=== PATIENT | male | born 1955 | race Caucasian/White ===

== ENCOUNTER 2017-02-04 19:21 | Observation (INO) | payer BC ==
[~2017-02-04] VITALS: Ht 180.3 cm; Wt 84.6 kg
[~2017-02-04 19:21] MED LIST: APIX1TAB3 PO; ASPI325T39 PO; SUMA100T16 PO
[2017-02-04] MEDS ORDERED: SODIUM CHLORIDE 0.9% 1000ML 1,000 ML IV STA (19:35)
[2017-02-04] MEDS ORDERED: LISI-461 PO (19:36)
[2017-02-04] MEDS ORDERED: SOTA80TA PO (19:36)
--- NOTE | 2017-02-04 19:43 | EMERGENCY ROOM VISIT NOTE ---
History Report prepared by Scribe: Dorothy Rodriguez Under the Supervision of: Dr. Erasto Mao M.D. First contact with patient: 19:30 Chief Complaint: CONGESTION Stated Complaint: CONGESTION, COUGHING UP BLOOD History of Present Illness The patient is a 61 year old male who presents to the Emergency Room with complaints of a persistent cough and congestion for the past 1 week. He is accompanied by his . Earlier this afternoon, he started experiencing hemoptysis, so he came to the ED. He reports each episode of hemoptysis is "approximately a shot glass size amount of blood". He thinks he has coughed up 4 or 5 ounces of blood so far today. The patient has a history of atrial fibrillation but states he only takes a daily baby Aspirin and no other daily blood thinners. He admits to some lightheadedness and fatigue, but states this is only after he coughs. He has never experienced hemoptysis before. He has not experienced any difficulty swallowing. 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 He did not wear a mask while working last week. He is a current 1/2 pack a day smoker. He has no history of asthma or COPD. He denies any recent hematuria or hematochezia. He admits to a feeling of discomfort in his chest, but states it does not feel like actual "pain". The patient denies any recent fevers, chills, back pain or abdominal pain. He has not undergone any recent surgeries and has had no recent travel. 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 A total of ten systems were reviewed and were otherwise negative. Past Medical & Surgical Medical Problems: (1) A-fib (2) Hemoptysis (3) HTN (hypertension) Family History FH: heart disease Social History Smoking Status: Current Every Day Smoker Drug Use: none Marital Status: Housing Status: lives with family Occupation Status: employed Current/Historical Medications Scheduled Aspirin (Aspirin Ec), 81 MG PO DAILY Lisinopril (Zestril), 10 MG PO QAM Sotalol Hcl (Sotalol Hcl), 80 MG PO BID Scheduled PRN Sumatriptan Succinate (Imitrex), 100 MG PO UD PRN for Cluster Headaches Allergies Coded Allergies: Penicillins (Unverified Allergy, Mild, anaphylaxsis, 02/04/17) Physical Exam Vital Signs Date Time Temp Pulse Resp B/P (MAP) Pulse Ox O2 Delivery O2 Flow Rate FiO2 02/04/17 23:12 59 20 144/82 02/04/17 20:56 60 22 02/04/17 20:51 59 20 02/04/17 20:46 57 16 02/04/17 20:41 62 19 02/04/17 20:36 63 14 02/04/17 20:31 62 22 02/04/17 20:26 62 11 02/04/17 20:21 66 15 02/04/17 20:18 63 02/04/17 20:02 96 Room Air 02/04/17 20:02 98 Room Air 02/04/17 19:26 36.6 66 20 162/83 97 Room Air Physical Exam GENERAL: Awake, alert, well-appearing, in no distress HENT: Normocephalic, atraumatic. Oropharynx unremarkable. Dry mucous membranes. EYES: Normal conjunctiva. Sclera non-icteric. NECK: Supple. No nuchal rigidity. FROM. No JVD. RESPIRATORY: Clear to auscultation. CARDIAC: Regular rate, normal rhythm. Extremities warm and well perfused. Pulses equal. ABDOMEN: Soft, non-distended. No tenderness to palpation. No rebound or guarding. No masses. RECTAL: Deferred. MUSCULOSKELETAL: Chest examination reveals no tenderness. The back is symmetrical on inspection without obvious abnormality. There is no CVA tenderness to palpation. No joint edema. LOWER EXTREMITIES: Calves are equal size bilaterally and non-tender. No edema. No discoloration. NEURO: Normal sensorium. No sensory or motor deficits noted. SKIN: No rash or jaundice noted. Medical Decision & Procedures ER Provider Diagnostic Interpretation: Radiology results as stated below per my review and radiologist interpretation: CHEST ONE VIEW PORTABLE HISTORY: 61 years-old Male CHEST PAIN acute atypical chest pain with cough and congestion. Initial exam. COMPARISON: Portable chest radiograph 12/04/2015 TECHNIQUE: Portable upright AP view of the chest FINDINGS: Cardiomediastinal and hilar silhouettes are within normal limits. There is no pneumothorax, pleural effusion, focal airspace consolidation or overt pulmonary edema. The bones are grossly intact. IMPRESSION: No acute cardiopulmonary process. The above report was generated using voice recognition software. It may contain grammatical, syntax or spelling errors. Electronically signed by: Kiel Patiño M.D. 02/04/2017 8:16 PM (CHEST FOR PE) ANGIO WITH CT DOSE: 349.21 mGy.cm HISTORY: 61 years-old Male presents with acute chest pain with concern for pulmonary embolus. Acute cough and congestion. Initial exam. TECHNIQUE: Multiple CTA images of the chest were obtained after the intravenous administration of 92 ml Optiray 320. Coronal and sagittal MIPS were obtained from the axial data set and were submitted for review. A dose lowering technique was utilized adhering to the principles of ALARA. COMPARISON: Chest radiograph of same day. FINDINGS: CTA: Heart is normal in size without pericardial effusion. The thoracic aorta is not well opacified, however demonstrates no dissection or aneurysm. Note is made of a bovine aortic arch. Mild atherosclerotic plaquing of the thoracic aorta is present. The pulmonary arterial tree is well opacified to the level of the subsegmental branches and demonstrates no focal filling defect to suggest pulmonary thromboembolic disease. CT CHEST: No dominant thyroid nodule. Nonspecific mildly prominent subcarinal and right hilar lymph nodes are seen measuring up to 10 mm in short axis. Moderate bilateral bronchial wall thickening is present, greatest within the lung bases compatible with bronchitis. There is no pneumothorax, pleural effusion or focal airspace consolidation. There are scattered groundglass opacities of the upper lung segments with multiple bilateral multilobar distribution nodular opacities measuring up to 4 mm suggesting infectious or inflammatory etiology. There is also suggestion of groundglass central lobular nodules within the upper lung zones. There is minimal dependent bibasilar atelectasis. Minimal layering debris is seen within the trachea. Imaged upper abdominal structures are within normal limits. Probable cyst of the superior pole right kidney is seen, 1.8 cm. Bones are intact. IMPRESSION: 1. No evidence of acute aortic pathology or pulmonary thromboembolic disease. 2. Moderate bronchitis with upper lobe predominant distribution of centrilobular groundglass opacities and scattered random distribution of bilateral multilobar distribution pulmonary nodules measuring up to 4 mm. Constellation of findings suggests associated infectious or inflammatory pneumonitis. Follow-up imaging to document resolution is needed. 3. No lobar airspace consolidation. Please refer to below summary of Fleischner criteria recommendations for follow-up of incidental CT nodules (Libby Tompkins, Guidelines for management of small pulmonary nodules detected on CT scans: A statement from the Fleischner Society, Radiology 237: [id number].) SOLID NODULES Multiple nodules size: <6 mm * Low risk patients: no routine follow-up * high risk patients: optional CT at 12 months Note: newly detected indeterminate nodule in persons 35 years of age or older. * Low risk patients: minimal or absent history of smoking and/or other known risk factors * high risk patients: history of smoking or of other known risk factors (e.g. first degree relative with lung cancer, or exposure to asbestos, radon, uranium) * if a nodule up to 8 mm is partly solid or is ground glass further follow-up is required after 24 months to exclude possible slow growing adenocarcinoma (HARMEET) The above report was generated using voice recognition software. It may contain grammatical, syntax or spelling errors. Electronically signed by: Kiel Patiño M.D. 02/04/2017 10:11 PM Laboratory Results 02/04/17 20:01 Red Blood Count 5.15, Mean Corpuscular Volume 89.9, Mean Corpuscular Hemoglobin 32.4, Mean Corpuscular Hemoglobin Concent 36.1, Mean Platelet Volume 10.6, Neutrophils (%) (Auto) 39.7, Lymphocytes (%) (Auto) 41.7, Monocytes (%) (Auto) 8.0, Eosinophils (%) (Auto) 9.9, Basophils (%) (Auto) 0.5, Neutrophils # (Auto) 3.62, Lymphocytes # (Auto) 3.82, Monocytes # (Auto) 0.73, Eosinophils # (Auto) 0.91, Basophils # (Auto) 0.05 02/04/17 20:01 Test 02/04/17 20:01 White Blood Count 9.15 K/uL (4.8-10.8) Red Blood Count 5.15 M/uL (4.7-6.1) Hemoglobin 16.7 g/dL (14.0-18.0) Hematocrit 46.3 % (42-52) Mean Corpuscular Volume 89.9 fL (80-100) Mean Corpuscular Hemoglobin 32.4 pg (25-34) Mean Corpuscular Hemoglobin Concent 36.1 g/dl (32-36) Platelet Count 264 K/uL (130-400) Mean Platelet Volume 10.6 fL (7.4-10.4) Neutrophils (%) (Auto) 39.7 % Lymphocytes (%) (Auto) 41.7 % Monocytes (%) (Auto) 8.0 % Eosinophils (%) (Auto) 9.9 % Basophils (%) (Auto) 0.5 % Neutrophils # (Auto) 3.62 K/uL (1.4-6.5) Lymphocytes # (Auto) 3.82 K/uL (1.2-3.4) Monocytes # (Auto) 0.73 K/uL (0.11-0.59) Eosinophils # (Auto) 0.91 K/uL (0-0.5) Basophils # (Auto) 0.05 K/uL (0-0.2) RDW Standard Deviation 45.1 fL (36.4-46.3) RDW Coefficient of Variation 13.7 % (11.5-14.5) Immature Granulocyte % (Auto) 0.2 % Immature Granulocyte # (Auto) 0.02 K/uL (0.00-0.02) Prothrombin Time 10.6 SECONDS (9.0-12.0) Prothromb Time International Ratio 1.0 (0.9-1.1) Anion Gap 5.0 mmol/L (3-11) Est Creatinine Clear Calc Drug Dose 74.5 ml/min Estimated GFR () 97.4 Estimated GFR (Non- 84.1 BUN/Creatinine Ratio 16.9 (10-20) Calcium Level 9.6 mg/dl (8.5-10.1) Magnesium Level 2.1 mg/dl (1.8-2.4) Total Bilirubin 0.3 mg/dl (0.2-1) Direct Bilirubin < 0.1 mg/dl (0-0.2) Aspartate Amino Transf (AST/SGOT) 25 U/L (15-37) Alanine Aminotransferase (ALT/SGPT) 27 U/L (12-78) Alkaline Phosphatase 75 U/L (45-117) Troponin I < 0.015 ng/ml (0-0.045) Total Protein 7.4 gm/dl (6.4-8.2) Albumin 4.0 gm/dl (3.4-5.0) Thyroid Stimulating Hormone (TSH) 1.780 uIu/ml (0.300-4.500) Laboratory results reviewed by me Medications Administered Medications (Trade) Dose Ordered Sig/[place] Route Start Time Stop Time Status Last Admin Dose Admin Sodium Chloride 1,000 ml @ 999 mls/hr Q1H1M STAT IV 02/04/17 19:35 02/04/17 20:35 DC 02/04/17 20:16 999 MLS/HR Sodium Chloride ([place] Nasal [place]) 2 sprays NOW ONCE NA 02/04/17 23:30 02/04/17 23:31 DC 02/05/17 00:58 2 SPRAYS Albuterol/ Ipratropium (Duoneb) 3 ml NOW STAT INH 02/04/17 23:29 02/04/17 23:31 DC 02/05/17 00:09 3 ML ECG Indication: other (hemoptysis) Rate (beats per minute): 63 Rhythm: normal sinus Findings: no acute ischemic change, other (normal axis) ED Course 3: The patient was evaluated in room C8. A complete history and physical exam was performed. 5: NSS 1000 ml @ 999 mls/hr IV. 7: I discussed the patients case with Dr. Sargent, [facility] [place] [facility]. He recommends the patient be evaluated by the hospital medicine team. He does not recommend steroids or antibiotics at this point as the patient is stable. 8: I discussed the patients case with Dr. Hoff, [facility]. The patient will be further evaluated. 2305: I reevaluated the patient. He is resting comfortably. I discussed his results and my recommendation he remain in the ED for further evaluation and management and he verbalized complete understanding and agreement. Medical Decision I reviewed the patient's past medical history, medications, and the nursing notes as described above. The differential diagnoses considered include bronchitis, pneumonia, PE, cancer , invasive pneumonia and tracheal injury. Patient is a 61-year-old gentleman with a past medical history of hypertension, remote history of A. fib transiently on a Eliquis status post cardioversion as emergency department with cough congestion for the past week and then new onset hemoptysis with multiple episodes today that he describes as a shot glass full of red blood per history of present illness. Exam the patient is in no acute distress, afebrile stable vital signs. Oropharynx is clear with no signs of active bleeding. Lungs are clear to auscultation bilaterally. 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 We will check labs. Anticipate admission for likely pulmonology evaluation and possible bronchoscopy. Labs were unremarkable with WBC within normal limits. Chemistry unremarkable. CT scan showing groundglass opacities concerning for infectious versus inflammatory pneumonitis. I discussed this case with pulmonology who recommends admission and bronchoscopy tomorrow to help clarify the patient's diagnosis in the setting of his risk of environmental exposures. Considering the patient is hemodynamically stable, with normal saturation on room air, recommends deferring steroids or antibiotics at this time as this can affect diagnostic testing. The case was discussed with Medicine hospitalist who will admit the patient for further management. Given nasal saline for nasal congestion and neb for anti-tussive effect in setting of bronchitis/pneumonitis. Medication Reconcilliation Current Medication List: was personally reviewed by me Blood Pressure Screening Patient's blood pressure: Elevated blood pressure Blood pressure disposition: Elevated BP felt to be situational Consults Time Called: 2244 Consulting Physician: [facility] Returned Call: [phone] I discussed the patients case with [facility]. He recommends the patient be evaluated by the hospital medicine team. He does not recommend steroids at this point as the patient is stable. Additional Consults: Time Called: 2254 Consulted Physician: Elizabeth Welch Hospitalist Returned Call: [phone] Additional Comments: I [facility] the patients [facility] The patient will be further evaluated. Impression Primary Impression: Pneumonitis Scribe Attestation The scribe's documentation has been prepared under my direction and personally reviewed by me in its entirety. I confirm that the note above accurately reflects all work, treatment, procedures, and medical decision making performed by me. Departure Information Dispostion Being Evaluated By Hospitalist Referrals No Doctor, Assigned (PCP) Patient Instructions [facility]
[2017-02-04] MEDS ORDERED: OPTIRAY 320 IV PRN (19:45)
[2017-02-04] MEDS ORDERED: ASPI81TA28 PO (20:09)
[2017-02-04 20:11] LABS: BASO % 0.5 %; BASO ABS # 0.05 K/uL (0-0.2); COMPLETE YES; EOS % 9.9 %; HEMATOCRIT 46.3 % (42-52); IG% 0.2 %; LYMPH % 41.7 %; LYMPH ABS # 3.82 K/uL (1.2-3.4); MEAN CELL VOLUME 89.9 fL (80-100); MEAN CORPUSCULAR HEMOGLOBIN 32.4 pg (25-34); MEAN CORPUSCULAR HGB CONC 36.1 g/dl (32-36); MEAN PLATELET VOLUME 10.6 fL (7.4-10.4); NEUT % 39.7 %; PLATELET COUNT 264 K/uL (130-400); RED BLOOD COUNT 5.15 M/uL (4.7-6.1); WHITE BLOOD COUNT 9.15 K/uL (4.8-10.8)
--- NOTE | 2017-02-04 20:18 | DIAGNOSTIC IMAGING REPORT ---
CHEST ONE VIEW PORTABLE HISTORY: 61 years-old Male CHEST PAIN acute atypical chest pain with cough and congestion. Initial exam. COMPARISON: Portable chest radiograph 12/04/2015 TECHNIQUE: Portable upright AP view of the chest FINDINGS: Cardiomediastinal and hilar silhouettes are within normal limits. There is no pneumothorax, pleural effusion, focal airspace consolidation or overt pulmonary edema. The bones are grossly intact. IMPRESSION: No acute cardiopulmonary process. The above report was generated using voice recognition software. It may contain grammatical, syntax or spelling errors. Electronically signed by: Kiel Patiño M.D. 02/04/2017 8:16 PM Dictated Date/Time: 02/04/2017 8:15 PM
[2017-02-04 20:27] LABS: BLOOD UREA NITROGEN 17 mg/dl (7-18); BUN/CREATININE RATIO 16.9 (10-20); CALCIUM 9.6 mg/dl (8.5-10.1); CARBON DIOXIDE 30 mmol/L (21-32); CHLORIDE 106 mmol/L (98-107); CREATININE 0.98 mg/dl (0.60-1.40); GLUCOSE 83 mg/dl (70-99); POTASSIUM 4.1 mmol/L (3.5-5.1); SODIUM 141 mmol/L (136-145)
[2017-02-04 20:30] LABS: PROTHROMBIN TIME (PATIENT) 10.6 SECONDS (9.0-12.0)
--- NOTE | 2017-02-04 22:12 | DIAGNOSTIC IMAGING REPORT ---
(CHEST FOR PE) ANGIO WITH CT DOSE: 349.21 mGy.cm HISTORY: 61 years-old Male presents with acute chest pain with concern for pulmonary embolus. Acute cough and congestion. Initial exam. TECHNIQUE: Multiple CTA images of the chest were obtained after the intravenous administration of 92 ml Optiray 320. Coronal and sagittal MIPS were obtained from the axial data set and were submitted for review. A dose lowering technique was utilized adhering to the principles of ALARA. COMPARISON: Chest radiograph of same day. FINDINGS: CTA: Heart is normal in size without pericardial effusion. The thoracic aorta is not well opacified, however demonstrates no dissection or aneurysm. Note is made of a bovine aortic arch. Mild atherosclerotic plaquing of the thoracic aorta is present. The pulmonary arterial tree is well opacified to the level of the subsegmental branches and demonstrates no focal filling defect to suggest pulmonary thromboembolic disease. CT CHEST: No dominant thyroid nodule. Nonspecific mildly prominent subcarinal and right hilar lymph nodes are seen measuring up to 10 mm in short axis. Moderate bilateral bronchial wall thickening is present, greatest within the lung bases compatible with bronchitis. There is no pneumothorax, pleural effusion or focal airspace consolidation. There are scattered groundglass opacities of the upper lung segments with multiple bilateral multilobar distribution nodular opacities measuring up to 4 mm suggesting infectious or inflammatory etiology. There is also suggestion of groundglass central lobular nodules within the upper lung zones. There is minimal dependent bibasilar atelectasis. Minimal layering debris is seen within the trachea. Imaged upper abdominal structures are within normal limits. Probable cyst of the superior pole right kidney is seen, 1.8 cm. Bones are intact. IMPRESSION: 1. No evidence of acute aortic pathology or pulmonary thromboembolic disease. 2. Moderate bronchitis with upper lobe predominant distribution of centrilobular groundglass opacities and scattered random distribution of bilateral multilobar distribution pulmonary nodules measuring up to 4 mm. Constellation of findings suggests associated infectious or inflammatory pneumonitis. Follow-up imaging to document resolution is needed. 3. No lobar airspace consolidation. Please refer to below summary of Fleischner criteria recommendations for follow-up of incidental CT nodules (Libby Tompkins, Guidelines for management of small pulmonary nodules detected on CT scans: A statement from the Fleischner Society, Radiology 237: [phone].) SOLID NODULES Multiple nodules size: <6 mm * Low risk patients: no routine follow-up * high risk patients: optional CT at 12 months Note: newly detected indeterminate nodule in persons 35 years of age or older. * Low risk patients: minimal or absent history of smoking and/or other known risk factors * high risk patients: history of smoking or of other known risk factors (e.g. first degree relative with lung cancer, or exposure to asbestos, radon, uranium) * if a nodule up to 8 mm is partly solid or is ground glass further follow-up is required after 24 months to exclude possible slow growing adenocarcinoma (HARMEET) The above report was generated using voice recognition software. It may contain grammatical, syntax or spelling errors. Electronically signed by: Kiel Patiño M.D. 02/04/2017 10:11 PM Dictated Date/Time: 02/04/2017 10:03 PM
[2017-02-04] MEDS ORDERED: ALBUT/IPRATROP 3MG/0.5MG NEB 3 ML VIAL INH STA (23:29)
[2017-02-04] MEDS ORDERED: SODIUM CHLORIDE 0.65% NA SOLN 45 ML (OCEAN) ONE (23:30)
[2017-02-05] VITALS (16 sets, daily range): BP systolic 95–152; BP diastolic 54–89; PULSE 38–53; TEMP 36.4–36.6; O2SAT 91–100; Ht 180.3 cm; Wt 84.6 kg
[2017-02-05] LABS: HEMATOCRIT 45.6 % (42-52)
[2017-02-05 00:06] LABS: ALKALINE PHOSPHATASE 75 U/L (45-117); ALT/SGPT 27 U/L (12-78); AST/SGOT 25 U/L (15-37); MAGNESIUM 2.1 mg/dl (1.8-2.4)
[2017-02-05] MEDS ORDERED: GUAIFENESIN 600 MG TABCR PO ONE (00:08)
[2017-02-05] MEDS ORDERED: ALBUT/IPRATROP 3MG/0.5MG NEB 3 ML VIAL INH PRN (00:15)
[2017-02-05] MEDS ORDERED: BENZONATATE 100MG CAP PO PRN (00:15)
[2017-02-05] MEDS ORDERED: ONDANSETRON INJ 2 MG/ML 2 ML VIAL IV PRN (00:15)
[2017-02-05] MEDS ORDERED: ACETAMINOPHEN 325 MG TAB PO PRN (00:15)
[2017-02-05] MEDS ORDERED: TRAMADOL HCL 50 MG TAB PO PRN (00:15)
[2017-02-05] MEDS ORDERED: MoRPHine SULFATE 4 MG/ML 1 ML CARP\\VIAL IV PRN (00:15)
[2017-02-05] MEDS ORDERED: SOTALOL HCL 80 MG TAB PO ONE (00:45)
[2017-02-05] MEDS ORDERED: IV FLUIDS COMPLETED PRN (01:00)
--- NOTE | 2017-02-05 05:09 | HISTORY & PHYSICAL EXAMINATION ---
DATE OF ADMISSION: 02/04/2017 PRIMARY CARE DOCTOR: Dr. Sales (Although he has not met him.) CHIEF COMPLAINT: Hemoptysis. HISTORY OF PRESENT ILLNESS: History obtained from patient and records. Medical history is significant for hypertension, paroxysmal AFib, ongoing tobacco abuse. Recent confinement last September 2011 for recurrent atrial fibrillation. Patient was discharged on Sotalol and Xarelto. Currently, he is taking aspirin daily. Three days history of nasal congestion. Today, the patient noted hemoptysis. No chest pain, no short of breath. Unquantified volume of hemoptysis, no fever, no chills, no recent travel or no sick contacts. No recent weight loss. Denies aspiration. Brought to the Emergency Room. MEDICAL HISTORY: As above. SURGERIES: He has had appendectomy. HOME MEDICATIONS: Include, aspirin, Zestril, sotalol, Imitrex. ALLERGIES: TO PENICILLIN. FAMILY HISTORY: Heart disease. PERSONAL AND SOCIAL HISTORY: Half pack daily, occasional EtOH intake. works at a [email or web address]. REVIEW OF SYSTEMS: As per HPI, all others ROS negative. PHYSICAL EXAMINATION: VITAL SIGNS: Blood pressure was noted to be 144/82, pulse rate of 59, RR 20, temperature 36, sats 97 on room air. GENERAL: Noted to be comfortable, no respiratory distress. SKIN: Normal color. HEENT: Partial alopecia. Parchment palpebral conjunctivae. Dry mucosa. NECK: No JVD. supple CHEST: Clear to auscultation. HEART: Regular rate and rhythm. ABDOMEN: Soft. EXTREMITIES: No edema. No tenderness NEUROLOGIC: No gross focality. LABORATORY DATA: Hemoglobin was noted to be 16.7, hematocrit 46.3, white cell count 10, platelets noted to be 264. Sodium noted to be 141, potassium 4.1, chloride 106, CO2 30, BUN 17, creatinine 0.98, glucose 83. EKG as per my interpretation, rate is 65, no sign of ischemia. CT chest, no PE, moderate bronchitis, upper lobe predominant centrilobular ground-glass opacities, scattered, random distribution bilateral multilovar pulmonary nodules measuring 4 mm, infectious versus inflammatory pneumonitis, no lobar pneumonia. ASSESSMENT: 1. Hemoptysis secondary to bronchitis. Patient is not septic. Hemodynamically stable. 2. Hypertension, stable. 3. Ongoing tobacco abuse. 4. Atrial fibrillation, px normal sinus rhythm, on aspirin. PLAN: Observation. GMF Serial H&H , transfuse packed RBC if hemoglobin less than 7 and or symptomatically anemia. Appropriate to hold home aspirin for now. Antitussives, mucolytics when necessary for now Nebs p.r.n. Pulmonology consult. ER provider already in touch with Dr. Sargent. He recommends holding off on antibiotics, steroids for now. Nothing by mouth for possible bronchoscopy in the morning. Nicotine patch DVT prophylaxis, SCDs RE hemoptysis Full code. MTDD
[2017-02-05 06:25] LABS: BASO % 0.4 %; BASO ABS # 0.03 K/uL (0-0.2); COMPLETE YES; EOS % 11.7 %; HEMATOCRIT 46.6 % (42-52); IG% 0.1 %; LYMPH % 38.1 %; LYMPH ABS # 2.96 K/uL (1.2-3.4); MEAN CORPUSCULAR HEMOGLOBIN 29.9 pg (25-34); MEAN CORPUSCULAR HGB CONC 32.8 g/dl (32-36); MEAN PLATELET VOLUME 10.5 fL (7.4-10.4); MONO % 7.5 %; NEUT % 42.2 %; PLATELET COUNT 250 K/uL (130-400); RED BLOOD COUNT 5.12 M/uL (4.7-6.1); WHITE BLOOD COUNT 7.77 K/uL (4.8-10.8)
[2017-02-05] MEDS: GUAIFENESIN 600 MG TABCR PO SCH ×2 (07:53→16:03)
[2017-02-05] MEDS: SOTALOL HCL 80 MG TAB PO SCH ×2 (07:54→07:58)
[2017-02-05] MEDS ORDERED: DEXTROSE 5% 1000ML 1,000 ML IV SCH (08:00)
[2017-02-05] MEDS ORDERED: NICOTINE 14 MG/24 HR TDSY TD SCH (09:00)
[2017-02-05] MEDS ORDERED: LISINOPRIL 10 MG TAB PO SCH (09:00)
--- NOTE | 2017-02-05 09:05 | Pulmonary Consultation ---
History General Date of Service: Feb 05, 2017. Stated Complaint: Hemotysis HPI The patient is a 61 year old male who presents to [facility] with complaints of Hemotysis. The patient's primary care provider is No Doctor, Assigned. 61-year-old male admitted hemoptysis: 61-year-old male with a past medical history for atrial fibrillation previously treated with Zoloft sinus rhythm after cardioversion. 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 Her last 2-3 days he has experienced hemoptysis which she notes at its greatest was able to fill a shot glass but was more dark in nature and not active bleeding per the patient. Due to this he presented to the emergency room. He currently denies any respiratory insufficiency, fever, chills, travel to endemic TB areas , TB contact, unintentional weight loss, pleurisy, Lasix cardiac chest pain, palpitations or right naris. He does note a 7 day history of sinusitis/rhinitis and a history of epistaxis. Historian: patient, EMS Review of Systems Constitutional: reports: as stated in HPI Eyes: reports: no symptoms ENT: reports: as stated in HPI Cardiovascular: reports: as stated in HPI Respiratory: reports: as stated in HPI Gastrointestinal: reports: no symptoms Genitourinary - Male: reports: no symptoms Musculoskeletal: reports: no symptoms Integumentary: reports: no symptoms Neurologic: reports: no symptoms Psychiatric: reports: no symptoms Endocrine: no symptoms Hematologic / Lymphatic: no symptoms Allergic / Immunologic: no symptoms Past Medical History Past Medical History: (1) A-fib (2) Hemoptysis (3) HTN (hypertension) Past Surgical History: None per the patient Family History FH: heart disease Coronary artery disease Social History Smoking Status: Current Every Day Smoker (total greater than [id number] history half a pack per day at this time) Drug Use: none Marital Status: Housing Status: lives with family Occupation Status: employed Hx Tobacco Use In Past Year?: Yes Smoking Status: Current Every Day Smoker Marital status: Occupational Status: employed Immunizations History of Influenza Vaccine: N/A History of Tetanus Vaccine?: Yes Tetanus Immunization Date: Jun 03, 2005 History of Pneumococcal: No History of Hepatitis B Vaccine: No History of MDRO History of MDRO: No Allergies Coded Allergies: Penicillins (Unverified Allergy, Mild, anaphylaxsis, 02/04/17) Current Medications Reported Home Medications Medications Dose Route/Sig Max Daily Dose Days Date Category Aspirin Ec (Aspirin) 81 Mg Tab 81 Mg PO DAILY 02/04/17 Reported Zestril (Lisinopril) 10 Mg Tab 10 Mg PO QAM 12/04/15 Reported Sotalol Hcl 80 Mg Tab 80 Mg PO BID 12/04/15 Reported Imitrex (Sumatriptan Succinate) 100 Mg Tab 100 Mg PO UD PRN 09/21/11 Reported Physical Physical Exam Vital Signs: Date Time Temp Pulse Resp B/P (MAP) Pulse Ox O2 Delivery O2 Flow Rate FiO2 02/05/17 07:38 36.5 47 15 105/67 (80) 96 Room Air 02/05/17 00:44 Room Air 02/05/17 00:41 Room Air 02/05/17 00:33 36.4 53 16 152/89 97 Room Air 02/05/17 00:06 36.6 59 20 144/82 97 02/04/17 23:12 59 20 144/82 02/04/17 20:56 60 22 02/04/17 20:51 59 20 02/04/17 20:46 57 16 02/04/17 20:41 62 19 02/04/17 20:36 63 14 02/04/17 20:31 62 22 02/04/17 20:26 62 11 02/04/17 20:21 66 15 02/04/17 20:18 63 02/04/17 20:02 96 Room Air 02/04/17 20:02 98 Room Air 02/04/17 19:26 36.6 66 20 162/83 97 Room Air General Appearance: WELL-APPEARING, NO APPARENT DISTRESS Head: NORMOCEPHALIC, ATRAUMATIC Eyes: PERRLA, NO DISCHARGE, EOMI, SCLERAE NORMAL ENT: other (erythema with posterior oropharyngeal cobblestoning) Neck: NORMAL RANGE OF MOTION, NO TENDERNESS, TRACHEA MIDLINE, NO STRIDOR, SUPPLE Respiratory: BREATH SOUNDS NORMAL, CLEAR TO AUSCULTATION, CLEAR TO PERCUSSION, NO RESPIRATORY DISTRESS Cardiovasular: REGULAR RATE/RHYTHM, NORMAL S1S2, NO M/G/R, NO MURMUR, NO GALLOP Abdomen: NON TENDER, NORMAL BOWEL SOUNDS, NO REBOUND, NO MASSES, NO GUARDING, NO ORGANOMEGALY, NORMAL RECTAL EXAM Genitourinary - Male: EXTERNAL GENITALIA NORMAL Back: NORMAL INSPECTION, NO MIDLINE TENDERNESS, NO CVA TENDERNESS, NO PARAVERTEBRAL TTP Upper Extremities: NO EDEMA, NO DEFORMITY, NORMAL ROM Lower Extremities: NO EDEMA, NORMAL ROM, deformity (small 1 cm raised black lesion noted on the anterior calf usp through the tibial region) Pulses: carotid (R) (2+), carotid (L) (2+), posterior tibial (R), posterior tibial (L) (2+) Neuro: ALERT, ORIENTED x 3, NORMAL MOTOR EXAM, NORMAL SENSATION, NORMAL CEREBELLAR EXAM Reflexes: biceps (R) (2+), bicpes (L) (2+), patellar (R) (2+), patellar (L) (2+ ) Babinski Testing: right (downgoing), left (downgoing) Psychiatric: NORMAL AFFECT, NO SUICIDAL IDEATION, CONTRACTS FOR SAFETY Diagnostics Labs Results Past 24 Hours Test 02/04/17 20:01 02/04/17 23:50 02/05/17 06:06 02/05/17 07:38 Range/Units White Blood Count 9.15 7.77 4.8-10.8 K/uL Red Blood Count 5.15 5.12 4.7-6.1 M/uL Hemoglobin 16.7 15.3 15.3 14.0-18.0 g/dL Hematocrit 46.3 45.6 46.6 42-52 % Mean Corpuscular Volume 89.9 91.0 80-100 fL Mean Corpuscular Hemoglobin 32.4 29.9 25-34 pg Mean Corpuscular Hemoglobin Concent 36.1 32.8 32-36 g/dl Platelet Count 264 250 130-400 K/uL Mean Platelet Volume 10.6 10.5 7.4-10.4 fL Neutrophils (%) (Auto) 39.7 42.2 % Lymphocytes (%) (Auto) 41.7 38.1 % Monocytes (%) (Auto) 8.0 7.5 % Eosinophils (%) (Auto) 9.9 11.7 % Basophils (%) (Auto) 0.5 0.4 % Neutrophils # (Auto) 3.62 3.28 1.4-6.5 K/uL Lymphocytes # (Auto) 3.82 2.96 1.2-3.4 K/uL Monocytes # (Auto) 0.73 0.58 0.11-0.59 K/uL Eosinophils # (Auto) 0.91 0.91 0-0.5 K/uL Basophils # (Auto) 0.05 0.03 0-0.2 K/uL RDW Standard Deviation 45.1 45.0 36.4-46.3 fL RDW Coefficient of Variation 13.7 13.6 11.5-14.5 % Immature Granulocyte % (Auto) 0.2 0.1 % Immature Granulocyte # (Auto) 0.02 0.01 0.00-0.02 K/uL Prothrombin Time 10.6 9.0-12.0 SECONDS Prothromb Time International Ratio 1.0 0.9-1.1 Sodium Level 141 136-145 mmol/L Potassium Level 4.1 3.5-5.1 mmol/L Chloride Level 106 98-107 mmol/L Carbon Dioxide Level 30 21-32 mmol/L Anion Gap 5.0 3-11 mmol/L Blood Urea Nitrogen 17 7-18 mg/dl Creatinine 0.98 0.60-1.40 mg/dl Est Creatinine Clear Calc Drug Dose 74.5 ml/min Estimated GFR () 97.4 Estimated GFR (Non- 84.1 BUN/Creatinine Ratio 16.9 10-20 Random Glucose 83 70-99 mg/dl Calcium Level 9.6 8.5-10.1 mg/dl Magnesium Level 2.1 1.8-2.4 mg/dl Total Bilirubin 0.3 0.2-1 mg/dl Direct Bilirubin < 0.1 0-0.2 mg/dl Aspartate Amino Transf (AST/SGOT) 25 15-37 U/L Alanine Aminotransferase (ALT/SGPT) 27 12-78 U/L Alkaline Phosphatase 75 45-117 U/L Troponin I < 0.015 0-0.045 ng/ml Total Protein 7.4 6.4-8.2 gm/dl Albumin 4.0 3.4-5.0 gm/dl Thyroid Stimulating Hormone (TSH) 1.780 0.300-4.500 uIu/ml Bedside Glucose 102 70-99 mg/dl Diagnostic Radiology Chest x-ray: Within normal limits CT angiogram: No proximal thrombosis, bilateral upper lobe bronchiectasis with some mild groundglass changes greatest in the left upper lobe EKG Interpretation: NORMAL EKG Impression Assessment and Plan 61-year-old gentleman admitted with hemoptysis: #1 hemoptysis: At this time the patient's noted active hemoptysis but his last expectoration earlier this morning. He also notes chronic rhinitis sinusitis which could be the etiology of his current bleeding. Suggest we move forward with bronchoscopy for further evaluation the patient agrees and the consent is signed. We'll send off a BAL for evaluation of active infection. #2 skin lesion: Patient does have a left inner calf skin lesion which will require outpatient workup.
--- NOTE | 2017-02-05 09:06 | Procedure Note ---
Pre-Mod Sedation Assessment General Date of Moderate Sedation: Feb 05, 2017. Vital Signs: Vital Signs Past 12 Hours Date Time Temp Pulse Resp B/P (MAP) Pulse Ox O2 Delivery O2 Flow Rate FiO2 02/05/17 07:38 36.5 47 15 105/67 (80) 96 Room Air 02/05/17 00:44 Room Air 02/05/17 00:41 Room Air 02/05/17 00:33 36.4 53 16 152/89 97 Room Air 02/05/17 00:06 36.6 59 20 144/82 97 02/04/17 23:12 59 20 144/82 Review Cardiovascular: regular rate, rhythm, no edema, no gallop, no JVD, no murmur Abdomen: normal bowel sounds, non tender, soft, no organomegaly, no pulsatile mass, normal rectal exam Lungs: chest non-tender, lungs clear, normal breath sounds, no respiratory distress, no accessory muscle use Airway Class: II Pre-Sedation Airway Assessment Oral Cavity: Dentures Short Thick Neck: No Hx of Sleep Apnea: No Smoking Status: Current Every Day Smoker Mallampati Classification: Class II Procedure Planning Contraindications-for Mod Sed: None Yes Notes The planned sedation has been discussed with the patient and consent obtained. I have identified the patient, determined the appropriateness of sedation and have assessed the patient immediately prior to the procedure. All medicine(s) and interventions are by my order.
--- NOTE | 2017-02-05 10:29 | Bronchoscopy Procedure Note ---
Bronchoscopy Procedure Note Procedure: Bronchoscopy, conscious sedation, bronchial lavage right upper lobe Consent: Obtained through the patient placed into the chart Pre-procedural diagnosis: Hemoptysis Post-procedural diagnosis: Hemoptysis Start time: 1008 End time: 1020 Total time: 12 minutes Analgesia: 2% liquid lidocaine: Via nebulizer 4% gel lidocaine: Via right naris 2% liquid lidocaine: Via bronchoscopy Sedation: Versed IV: 2 mg Fentanyl IV: 50 g Procedure: The [facility] video bronchoscope was used for this procedure and passed down through the right naris Right naris/posterior naris/posterior oropharynx: Anatomically within normal limits Glottis: Anatomically within normal limits Vocal cords: Proper abduction and abduction, anatomically within normal limits Subglottis/trachea/Nadia: Anatomically within normal limits Right bronchial tree: Right mainstem bronchus: Anatomically within normal limits Right upper lobe: Anatomically within normal limits, blood-tinged airways approximately RB3 & RB2 Bronchus intermedius: Anatomically within normal limits Right middle lobe: Anatomically within normal limits Right lower lobe: Anatomically within normal limits Findings: No significant findings noted Left bronchial tree: Left mainstem bronchus: Anatomically within normal limits Left upper lobe: Anatomically within normal limits Lingula: Anatomically within normal limits Left lower lobe: Anatomically within normal limits Findings: No significant findings noted Bronchial alveolar lavage: Right upper lobe RB3 & RB2 EBL: none Complications: None Follow-up: Patient can return to his room and then be discharged is stable after 2 hour window in follow-up in the [facility] pulmonary clinic
--- NOTE | 2017-02-05 10:30 | Procedure Note ---
Post-Moderate Sedation Plan General Date of Moderate Sedation Feb 05, 2017. Vital Signs: Vital Signs Past 12 Hours Date Time Temp Pulse Resp B/P (MAP) Pulse Ox O2 Delivery O2 Flow Rate FiO2 02/05/17 10:00 41 17 127/77 100 Mask 6.0 02/05/17 09:51 38 17 142/84 100 Mask 6.0 02/05/17 09:45 36.5 47 15 105/67 96 Room Air 02/05/17 07:38 36.5 47 15 105/67 (80) 96 Room Air 02/05/17 07:30 Room Air 02/05/17 00:44 Room Air 02/05/17 00:41 Room Air 02/05/17 00:33 36.4 53 16 152/89 97 Room Air 02/05/17 00:06 36.6 59 20 144/82 97 02/04/17 23:12 59 20 144/82 Review - Discharge Plan Post Moderate Sedation Plan: On clinical assessment, the patient appears to have tolerated the conscious sedation without complications. Patient is recovering as anticipated. Patient will continue to be monitored by nursing and may be discharged when conscious sedation discharge criteria are met.
[2017-02-05] MEDS ORDERED: NURSING VERBAL MED ORDER ONE (11:00)
[2017-02-05] MEDS ORDERED: MIDAZOLAM HCL 5 MG/ML 1 ML VIAL IV ONE (11:00)
[2017-02-05] MEDS ORDERED: FENTANYL CITRATE INJ 50 MCG/1 ML 2 ML VIAL IV ONE (11:00)
--- NOTE | 2017-02-05 11:14 | Progress Note ---
Internal Med Progress Note Date of Service: Feb 05, 2017. Provider Documentation: SUBJECTIVE: The patient was seen and examined Admitted with Hemoptysis on the day of admission Complains of sinus congestion No Fever,chills,SOB and or wheezing OBJECTIVE: Vital Signs-as noted below Exam: General-S/P Bronchoscopy Some discomfort and cough No more bleeding Eyes-normal ENT-normal Neck-supple Lungs-Clear to ausucltate bilaterally Heart-Regular Abdomen-Benign,no masses,bowel sound present Extremities-No edema Neuro-AAOx3 Lab data as noted below. ASSESSMENT & PLAN: Hemoptysis :::S/P Bronchoscopy -minimal bloody drainage from RUL bronchus .No active bleeding First episode , Ongoing tobacco abuse. Likely secondary to bronchitis. No fever,chills ,SOB and or wheezing Hemodynamically stable. Appreciate Pulmonary input Bronchial sample was sent to Lab -await results Hypertension, stable. Atrial fibrillation, normal sinus rhythm, on aspirin. DVT prophylaxis, SCDs, hemoptysis. Full code. DISPOSITION Likely discharge this afternoon Vital Signs: Date Time Temp Pulse Resp B/P (MAP) Pulse Ox O2 Delivery O2 Flow Rate FiO2 02/05/17 10:59 36.6 44 16 114/74 (87) 91 Nasal Cannula 2.0 02/05/17 10:50 Mask 02/05/17 10:40 50 22 132/81 94 Nasal Cannula 2.0 02/05/17 10:30 49 21 119/73 93 Nasal Cannula 2.0 02/05/17 10:25 50 18 118/82 94 Nasal Cannula 4.0 02/05/17 10:20 51 17 114/84 100 Mask 4.0 02/05/17 10:15 52 18 95/54 100 Mask 6.0 02/05/17 10:10 51 17 132/85 100 Mask 6.0 02/05/17 10:05 50 19 144/80 100 Mask 6.0 02/05/17 10:00 41 17 127/77 100 Mask 6.0 02/05/17 09:51 38 17 142/84 100 Mask 6.0 02/05/17 09:45 36.5 47 15 105/67 96 Room Air 02/05/17 07:38 36.5 47 15 105/67 (80) 96 Room Air 02/05/17 07:30 Room Air 02/05/17 00:44 Room Air 02/05/17 00:41 Room Air 02/05/17 00:33 36.4 53 16 152/89 97 Room Air 02/05/17 00:06 36.6 59 20 144/82 97 02/04/17 23:12 59 20 144/82 02/04/17 20:56 60 22 02/04/17 20:51 59 20 02/04/17 20:46 57 16 02/04/17 20:41 62 19 02/04/17 20:36 63 14 02/04/17 20:31 62 22 02/04/17 20:26 62 11 02/04/17 20:21 66 15 02/04/17 20:18 63 02/04/17 20:02 96 Room Air 02/04/17 20:02 98 Room Air 02/04/17 19:26 36.6 66 20 162/83 97 Room Air Lab Results: Results Past 24 Hours Test 02/04/17 20:01 02/04/17 23:50 02/05/17 06:06 02/05/17 07:38 Range/Units White Blood Count 9.15 7.77 4.8-10.8 K/uL Red Blood Count 5.15 5.12 4.7-6.1 M/uL Hemoglobin 16.7 15.3 15.3 14.0-18.0 g/dL Hematocrit 46.3 45.6 46.6 42-52 % Mean Corpuscular Volume 89.9 91.0 80-100 fL Mean Corpuscular Hemoglobin 32.4 29.9 25-34 pg Mean Corpuscular Hemoglobin Concent 36.1 32.8 32-36 g/dl Platelet Count 264 250 130-400 K/uL Mean Platelet Volume 10.6 10.5 7.4-10.4 fL Neutrophils (%) (Auto) 39.7 42.2 % Lymphocytes (%) (Auto) 41.7 38.1 % Monocytes (%) (Auto) 8.0 7.5 % Eosinophils (%) (Auto) 9.9 11.7 % Basophils (%) (Auto) 0.5 0.4 % Neutrophils # (Auto) 3.62 3.28 1.4-6.5 K/uL Lymphocytes # (Auto) 3.82 2.96 1.2-3.4 K/uL Monocytes # (Auto) 0.73 0.58 0.11-0.59 K/uL Eosinophils # (Auto) 0.91 0.91 0-0.5 K/uL Basophils # (Auto) 0.05 0.03 0-0.2 K/uL RDW Standard Deviation 45.1 45.0 36.4-46.3 fL RDW Coefficient of Variation 13.7 13.6 11.5-14.5 % Immature Granulocyte % (Auto) 0.2 0.1 % Immature Granulocyte # (Auto) 0.02 0.01 0.00-0.02 K/uL Prothrombin Time 10.6 9.0-12.0 SECONDS Prothromb Time International Ratio 1.0 0.9-1.1 Sodium Level 141 136-145 mmol/L Potassium Level 4.1 3.5-5.1 mmol/L Chloride Level 106 98-107 mmol/L Carbon Dioxide Level 30 21-32 mmol/L Anion Gap 5.0 3-11 mmol/L Blood Urea Nitrogen 17 7-18 mg/dl Creatinine 0.98 0.60-1.40 mg/dl Est Creatinine Clear Calc Drug Dose 74.5 ml/min Estimated GFR () 97.4 Estimated GFR (Non- 84.1 BUN/Creatinine Ratio 16.9 10-20 Random Glucose 83 70-99 mg/dl Calcium Level 9.6 8.5-10.1 mg/dl Magnesium Level 2.1 1.8-2.4 mg/dl Total Bilirubin 0.3 0.2-1 mg/dl Direct Bilirubin < 0.1 0-0.2 mg/dl Aspartate Amino Transf (AST/SGOT) 25 15-37 U/L Alanine Aminotransferase (ALT/SGPT) 27 12-78 U/L Alkaline Phosphatase 75 45-117 U/L Troponin I < 0.015 0-0.045 ng/ml Total Protein 7.4 6.4-8.2 gm/dl Albumin 4.0 3.4-5.0 gm/dl Thyroid Stimulating Hormone (TSH) 1.780 0.300-4.500 uIu/ml Bedside Glucose 102 70-99 mg/dl Test 02/05/17 10:33 Range/Units Microbiology Results 02/05/17 Gram Stain, Ordered Pending 02/05/17 Bronchoalveolar Lavage Culture, Ordered Pending 02/05/17 Fungal Smear, Received Pending 02/05/17 Fungal Culture, Received Pending 02/05/17 Acid Fast Stain, Received Pending 02/05/17 Mycobacterial Culture, Received Pending
--- NOTE | 2017-02-05 15:56 | Discharge Instructions ---
Discharge Instructions Date of Service Feb 05, 2017. Admission Reason for Admission: Hemotysis Discharge Discharge Diagnosis / Problem: Hemoptysis Discharge Goals Goal(s): Prevent Disease Progression Activity Recommendations Activity Limitations: resume your previous activity . Instructions / Follow-Up Instructions / Follow-Up Dr Sales on 02/11/17 at 8:45 AM.Please QUIT smoking Current Hospital Diet Patient's current hospital diet: Regular Diet Discharge Diet Recommended Diet: Regular Diet Pending Studies Studies pending at discharge: yes (Bronchoscopy tests results) List of pending studies: Results of Bronchoscopy samples Medical Emergencies . Who to Call and When: Medical Emergencies: If at any time you feel your situation is an emergency, please call 911 immediately. . Non-Emergent Contact Non-Emergency issues call your: Primary Care Provider . Past History Medical & Surgical History: (1) Pneumonitis (2) Hemoptysis (3) A-fib (4) HTN (hypertension) . "Provider Documentation" section prepared by Alcira Donato. . Engineer Byproduct Recommendations Engineer Byproduct Recommendations: Please make an appointment with Dr Sargent as advised. VTE Core Measure Inpt VTE Proph given/why not?: SCD's
[2017-02-05] MEDS ORDERED: MIDAZOLAM HCL 1 MG/ML 2ML VIAL IV ONE (16:21)
[2017-02-05] MEDS ORDERED: FENTANYL CITRATE 100 MCG 2 ML CARP IV ONE (16:21)
--- NOTE | 2017-02-05 18:08 | Discharge Summary ---
Discharge Summary Date of Service Feb 05, 2017. Discharge Summary Admission Date: Feb 04, 2017 at 23:44 Discharge Date: Feb 05, 2017 Discharge Disposition: Home Principal Diagnosis: Hemoptysis Secondary Diagnoses/Problems: Please see H&P and Hospital Progress note Procedures: Bronchoscopy Consultations: Pulmonary Medication Reconciliation Continued Medications: Aspirin (Aspirin Ec) 81 Mg Tab 81 MG PO DAILY Lisinopril (Zestril) 10 Mg Tab 10 MG PO QAM, TAB Sotalol Hcl (Sotalol Hcl) 80 Mg Tab 80 MG PO BID, TAB Sumatriptan Succinate (Imitrex) 100 Mg Tab 100 MG PO UD PRN for Cluster Headaches Admission Information HPI (per Admitting provider): DATE OF ADMISSION: 02/04/2017 PRIMARY CARE DOCTOR: Dr. Sales (Although he has not met him.) CHIEF COMPLAINT: Hemoptysis. HISTORY OF PRESENT ILLNESS: History obtained from patient and records. Medical history is significant for hypertension, paroxysmal AFib, ongoing tobacco abuse. Recent confinement last September 2011 for recurrent atrial fibrillation. Patient was discharged on Sotalol and Xarelto. Currently, he is taking aspirin daily. Three days history of nasal congestion. Today, the patient noted hemoptysis. No chest pain, no short of breath. Unquantified volume of hemoptysis, no fever, no chills, no recent travel or no sick contacts. No recent weight loss. Denies aspiration. Brought to the Emergency Room. MEDICAL HISTORY: As above. SURGERIES: He has had appendectomy. HOME MEDICATIONS: Include, aspirin, Zestril, sotalol, Imitrex. ALLERGIES: TO PENICILLIN. FAMILY HISTORY: Heart disease. PERSONAL AND SOCIAL HISTORY: Half pack daily, occasional EtOH intake. works at a [employer]. REVIEW OF SYSTEMS: As per HPI, all others ROS negative. PHYSICAL EXAMINATION: VITAL SIGNS: Blood pressure was noted to be 144/82, pulse rate of 59, RR 20, temperature 36, sats 97 on room air. GENERAL: Noted to be comfortable, no respiratory distress. SKIN: Normal color. HEENT: Partial alopecia. [place] palpebral conjunctivae. Dry mucosa. NECK: No JVD. supple CHEST: Clear to auscultation. HEART: Regular rate and rhythm. ABDOMEN: Soft. EXTREMITIES: No edema. No tenderness NEUROLOGIC: No gross focality. LABORATORY DATA: Hemoglobin was noted to be 16.7, hematocrit 46.3, white cell count 10, platelets noted to be 264. Sodium noted to be 141, potassium 4.1, chloride 106, CO2 30, BUN 17, creatinine 0.98, glucose 83. EKG as per my interpretation, rate is 65, no sign of ischemia. CT chest, no PE, moderate bronchitis, upper lobe predominant centrilobular ground-glass opacities, scattered, random distribution bilateral multilovar pulmonary nodules measuring 4 mm, infectious versus inflammatory pneumonitis, no lobar pneumonia. ASSESSMENT: 1. Hemoptysis secondary to bronchitis. Patient is not septic. Hemodynamically stable. 2. Hypertension, stable. 3. Ongoing tobacco abuse. 4. Atrial fibrillation, px normal sinus rhythm, on aspirin. PLAN: Observation. GMF Serial H&H , transfuse packed RBC if hemoglobin less than 7 and or symptomatically anemia. Appropriate to hold home aspirin for now. Antitussives, mucolytics when necessary for now Nebs p.r.n. Pulmonology consult. ER provider already in touch with Dr. Sargent. He recommends holding off on antibiotics, steroids for now. Nothing by mouth for possible bronchoscopy in the morning. Nicotine patch DVT prophylaxis, SCDs RE hemoptysis Full code. Hospital Course Hemoptysis :::S/P Bronchoscopy -minimal bloody drainage from RUL bronchus .No active bleeding First episode , Ongoing tobacco abuse. Likely secondary to bronchitis. CT of the Chest:CT chest, no PE, moderate bronchitis, upper lobe predominant centrilobular ground-glass opacities, scattered, random distribution bilateral multilovar pulmonary nodules measuring 4 mm, infectious versus inflammatory pneumonitis, no lobar pneumonia. No fever,chills ,SOB and or wheezing Hemodynamically stable. Appreciate Pulmonary input Bronchial sample was sent to Lab -await results Hypertension, stable. Atrial fibrillation, normal sinus rhythm, on aspirin. DVT prophylaxis, SCDs, hemoptysis. Full code. DISPOSITION Likely discharge this afternoon Total time spent on discharge = 35 minutes This includes examination of the patient, discharge planning, medication reconciliation, and communication with other providers. Discharge Instructions Date of Service Feb 05, 2017. Admission Reason for Admission: Hemotysis Discharge Discharge Diagnosis / Problem: Hemoptysis Discharge Goals Goal(s): Prevent Disease Progression Activity Recommendations Activity Limitations: resume your previous activity . Instructions / Follow-Up Instructions / Follow-Up Dr Sales on 02/11/17 at 8:45 AM.Please QUIT smoking Current Hospital Diet Patient's current hospital diet: Regular Diet Discharge Diet Recommended Diet: Regular Diet Pending Studies Studies pending at discharge: yes (Bronchoscopy tests results) List of pending studies: Results of Bronchoscopy samples Medical Emergencies . Who to Call and When: Medical Emergencies: If at any time you feel your situation is an emergency, please call 911 immediately. . Non-Emergent Contact Non-Emergency issues call your: Primary Care Provider . Past History Medical & Surgical History: (1) Pneumonitis (2) Hemoptysis (3) A-fib (4) HTN (hypertension) . "Provider Documentation" section prepared by Alcira Donato. . Computing Machine Operator Recommendations Computing Machine Operator Recommendations: Please make an appointment with Dr Sargent as advised. VTE Core Measure Inpt VTE Proph given/why not?: SCD's <Electronically signed by Alcira Donato M.D.> Additional Copies To Angelito Sales M.D.
[2017-03-02 13:15] LABS: HERPES SIMPLEX CULT SOURCE OTHER-BAL RT UP LOBE; HERPES SIMPLEX VIRUS CULT NOT ISOLATED (NOT ISOLATED)
== END 2017-02-05 16:22 | disposition home or self-care (01) ==
LOC: C.EDB 19:22 → C.MSW 23:44 → ENRESERV 23:58
PROVIDERS: ADMIT Internal Medicine; ATTEND Internal Medicine
DX: J40 Bronchitis, not specified as acute or chronic (principal); R04.2 Hemoptysis; I48.0 Paroxysmal atrial fibrillation; I10 Essential (primary) hypertension; F17.210 Nicotine dependence, cigarettes, uncomplicated; Z79.01 Long term (current) use of anticoagulants; Z79.82 Long term (current) use of aspirin; Z79.899 Other long term (current) drug therapy

== ENCOUNTER 2018-11-25 08:05 | Inpatient (IN) ==
[2018-11-25] MEDS ORDERED: SOTALOL HCL 80 MG TAB PO ONE (10:45)
--- NOTE | 2018-11-25 11:19 | Post Anesthesia Assessment ---
Date of Service November 25, 2018 Post Sedation Assessment Vital Signs Temp Pulse Resp BP Pulse Ox 11/25/18 09:17 36.8 C 76 18 116/79 99 Recovery Score Activity: Moves 4 extremities Respiration: Deep Breath/Cough Circulation: +/-20% PreAnes Value Consciousness: Fully Awake Oxygen Saturation: > 92% On Room Air Discharge Sedation Level of Care: Fast Track Phase II Post Sedation Plan On clinical assessment, the patient appears to have tolerated the sedation without complications. Patient is recovering as anticipated. Patient will continue to be monitored by nursing and may be discharged when sedation discharge criteria are met per below protocol. Upon Completions of procedure and additional 15 minutes continue every 5 minute vital signs and the P.A.R. score; then discharge to a Phase I or Fast Track to Phase II per the following guidelines: * Discharge Patient to appropriate Phase II area if PAR is 8 or greater or return to pre- procedure baseline. The post - procedure orders will be as directed. * If PAR score is less than 8 or not return to pre-procedure baseline then patient will follow Phase I monitoring till PAR is reached for Phase II. The Phase I may be done in procedure room or may call to secure a Phase I area. * If naloxone or flumazenil are used for reversal, hold in Phase I for continued monitoring from when last reversal dose was given for a minimum of 60 minutes or longer pending the nurse and/or physician discretion of patient condition before discharge to Phase II. Please call the Sedation Physician to re-evaluate and complete post-note for discharge to Phase II area. Do NOT discharge from procedure sedation or Phase 1 until post- sedation evaluation note is complete by procedure /sedation MD Sedation Discharge Instructions to be given to the patient at discharge to home.
--- NOTE | 2018-11-25 11:20 | Operative Report ---
Post Operative Report Pre & Post Diagnosis syncope, ICM, alot of NSVT Procedure dual chamber ICD and peripheral venogram Surgeon Kimberly Eller, DO Installment Agent none Estimated Blood Loss 10 Findings Consistent with Post-Op Diagnosis Specimens none Anesthesia Type MAC Complications none Disposition Accompanied Patient To Recovery: Yes Disposition: PCU Indications sycnope, alot of NSVT, ICM Description of Procedure see offiical report I attest to the content of the Intraoperative Record and any orders documented therein. Any exceptions are noted below.
--- NOTE | 2018-11-25 11:41 | History & Physical Report ---
Date of Service November 25, 2018 Assessment & Plan (1) Sinus bradycardia: History of Present Illness Chief Complaint: admitted due to symptomatic pAF; for sotalol increase in dose Primary Care Provider: Angelito Sales MD Allergies Allergy/AdvReac Type Severity Reaction Status Date / Time Penicillins Allergy Mild anaphylaxsi Unverified 10/10/18 09:13 s Home Medications Home Medications Medication Instructions Recorded Confirmed Type Eliquis 5 mg PO BID 10/10/18 11/25/18 History gabapentin 100 mg PO BID 10/10/18 11/25/18 History lisinopril 10 mg PO QPM 10/10/18 11/25/18 History sotalol 80 mg PO BID 10/10/18 11/25/18 History amitriptyline 10 mg PO DAILY 10/31/18 11/25/18 History aspirin 81 mg PO DAILY 10/31/18 10/31/18 History sumatriptan succinate 100 mg PO PRN 10/31/18 History triamcinolone acetonide [Nasacort] 2 spray INTRANASAL PRN 10/31/18 History Past Med/Surg History Medical History Atrial fibrillation DX 4 WEEKS AGO - ON ELIQUIS - FOLLOWS W/ DR. RESENDIZ History of migraine Hypertension Trigeminal neuralgia Surgical History History of appendectomy History of colonoscopy W/ POLYPECTOMY History of tooth extraction Family History Brother Family history of diabetes mellitus Uncle Family history of diabetes mellitus Social History Preferred Language: Bhutanese Communication Ability: Effective Beliefs That Will Affect Care: Mandaeism Mandaeism Beliefs: nondenominational Current Living Situation: Spouse Other Information That Helps Us Care for You: No Feels Safe at Home: Yes Safety Concerns: Feels Safe At This Time Smoking Status: Current every day smoker Tobacco Type: cigarettes Cigarettes Per Day: 10 Second Hand Exposure: No Tobacco Cessation Education Requested by Patient: No Hx Alcohol Use: Yes Alcohol type: beer Hx Substance Use: No Review of Systems Review of Systems: All systems reviewed & are unremarkable except as noted in HPI & below Physical Exam Physical Exam: aaox3, NAD NC/AT, EOMI Supple No JVD irregular and bradycardic S1/S2, No murmur CTA b/l no w/r/r soft nt/nd no LE edema b/l skin intact no focal deficits Results & Data Vital Signs (Past 12 Hours) Vital Signs Temp Pulse Resp BP Pulse Ox 11/25/18 09:17 36.8 C 76 18 116/79 99
--- NOTE | 2018-11-25 17:19 | Anesthesiology Consultation ---
Date of Service November 25, 2018 Assessment & Plan (1) Encounter for pre-operative examination: Chart Review Chart Review: Acceptable Risk for Surgery and Patient NOT seen in Pre Admission Testing Consults Requested none History Surgery Operation Date: 11/26/18 07:30 Proposed Procedures p Cardioversion Supervisor Wrapping Room w/Anesthesia - Kimberly Eller DO Height/Weight Height: 5 ft 11 in Weight: 89.54 kg Allergies Allergy/AdvReac Type Severity Reaction Status Date / Time Penicillins Allergy Mild anaphylaxsi Unverified 10/10/18 09:13 s Medications Home Medications Medication Instructions Recorded Confirmed Last Taken Eliquis 5 mg PO BID 10/10/18 11/25/18 11/25/18 07:00 gabapentin 100 mg PO BID 10/10/18 11/25/18 11/25/18 07:00 lisinopril 10 mg PO QPM 10/10/18 11/25/18 11/24/18 21:00 sotalol 80 mg PO BID 10/10/18 11/25/18 11/25/18 07:00 amitriptyline 10 mg PO DAILY 10/31/18 11/25/18 11/24/18 21:00 aspirin 81 mg PO DAILY 10/31/18 10/31/18 Unknown sumatriptan succinate 100 mg PO PRN 10/31/18 Unknown triamcinolone acetonide [Nasacort] 2 spray INTRANASAL PRN 10/31/18 11/25/18 07:00 Past Medical History Medical History Atrial fibrillation DX 4 WEEKS AGO - ON ELIQUIS - FOLLOWS W/ DR. RESENDIZ History of migraine Hypertension Trigeminal neuralgia Past Family History Family History Brother Family history of diabetes mellitus Uncle Family history of diabetes mellitus Past Surgical History Surgical History History of cardioversion 10/31/18 History of appendectomy History of colonoscopy W/ POLYPECTOMY History of tooth extraction Social History Smoking Status: Current every day smoker tobacco type: cigarettes Smoking cigarettes per day: 10 Hx Alcohol Use: Yes Alcohol type: beer alcohol intake frequency: 0-2 drinks per day Hx Substance Use: No substance use type: does not use Physical Exam Vital Signs Last Vital Signs Temp 36.7 C 06/25/19 15:37 Pulse 69 11/25/18 15:37 Resp 18 11/25/18 15:37 BP 125/85 11/25/18 15:37 Pulse Ox 99 11/25/18 15:37
[2018-11-25] MEDS: APIXABAN 5 MG TABLET PO SCH (22:09)
[2018-11-25] MEDS: GABAPENTIN 100 MG CAP PO SCH (22:09)
[2018-11-25] MEDS: SOTALOL HCL 80 MG TAB PO SCH (22:10)
[2018-11-25] MEDS: LISINOPRIL 10 MG TAB PO SCH (22:10)
[2018-11-26] MEDS ORDERED: PROPOFOL IV EMULSION 10 MG/ML 20 ML VIAL IV ONE (07:16)
--- NOTE | 2018-11-26 07:32 | History & Physical Bridge Note ---
Date of Service November 26, 2018 History & Physical Bridge Note I have examined the patient, reviewed the History & Physical and in the interval since the performance of the History & Physical I have noted the following changes of clinical significance: no changes noted; pt still in AF with sotalol; he has not missed a dose of eliquis in 3 weeks. He is for a repeat cardioversion.
--- NOTE | 2018-11-26 07:40 | Operative Report ---
Post Operative Report Pre & Post Diagnosis Pre: pAF Post: same plus SR Operation Date: 11/26/18 07:30 <No data on this case meets the specified criteria> Procedure synchronized cardioversion Operation Date: 11/26/18 07:30 <No data on this case meets the specified criteria> Surgeon Kimberly Eller, DO Training Engineer none Estimated Blood Loss 0 Findings Consistent with Post-Op Diagnosis Specimens none Description of Procedure see official report I attest to the content of the Intraoperative Record and any orders documented therein. Any exceptions are noted below.
[2018-11-26] MEDS ORDERED: ONDANSETRON INJ 2 MG/ML 2 ML VIAL IV PRN (07:46)
[2018-11-26] MEDS ORDERED: ATROPINE SULFATE 0.1 MG/ML 10ML SYR IV PRN (07:46)
[2018-11-26] MEDS ORDERED: ePHEDrine sulfate 50 MG/ML AMP IV PRN (07:46)
--- NOTE | 2018-11-26 07:48 | Anesthesiology Progress Note ---
Date of Service November 26, 2018 Anesthesia Post Procedure Vital Signs Vital Signs: Temp Pulse Pulse Resp BP Pulse Ox 11/26/18 03:50 36.4 C L 67 17 94/62 L 97 11/26/18 01:04 79 11/25/18 23:45 36.4 C L 75 17 100/52 L 97 11/25/18 19:38 36.6 C 76 18 128/28 L 96 11/25/18 15:37 36.7 C 69 18 125/85 99 11/25/18 09:17 36.8 C 76 18 116/79 99 Transfer of Care Handoff Completed per policy Notes Mental Status: alert / awake / arousable Patient Amnestic to Procedure: Yes Nausea / Vomiting: adequately controlled Pain: adequately controlled Airway Patency, RR, SpO2: stable & adequate BP & HR: stable & adequate Hydration State: stable & adequate Anesthetic Complications: no major complications apparent and Pt Satisfied with anesthetic care
[2018-11-26] MEDS: SOTALOL HCL 80 MG TAB PO SCH ×2 (08:48→20:58)
[2018-11-26] MEDS: GABAPENTIN 100 MG CAP PO SCH ×2 (08:49→20:57)
[2018-11-26] MEDS: APIXABAN 5 MG TABLET PO SCH ×2 (08:49→20:56)
[2018-11-26] MEDS ORDERED: AMITRIPTYLINE HCL 10 MG TAB PO SCH ×2 (09:00→21:00)
[2018-11-26] MEDS ORDERED: Nursing to Pharmacy Communication ONE (11:09)
[2018-11-26] MEDS: LISINOPRIL 10 MG TAB PO SCH (20:57)
[2018-11-27] MEDS: GABAPENTIN 100 MG CAP PO SCH (08:00)
[2018-11-27] MEDS: APIXABAN 5 MG TABLET PO SCH (08:00)
[2018-11-27] MEDS: SOTALOL HCL 80 MG TAB PO SCH (08:00)
--- NOTE | 2018-12-12 09:36 | Discharge Summary ---
Date of Service November 27, 2018 Admission HPI Per Admitting Provider pt with increased faitigue and SOB Admission Exam Per Admitting Provider aaox3, NAD NC/AT, EOMI Supple No JVD irregular S1/S2, No murmur CTA b/l no w/r/r soft nt/nd no LE edema b/l skin intact no focal deficits Principal Diagnosis pAF s/p DCCV and increased sotalol dose Discharge Exam aaox3, NAD NC/AT, EOMI Supple No JVD Nrl S1/S2, No murmur CTA b/l no w/r/r soft nt/nd no LE edema b/l skin intact no focal deficits Discharge Data Allergies Allergy/AdvReac Type Severity Reaction Status Date / Time Penicillins Allergy Mild anaphylaxsi Unverified 10/10/18 09:13 s Procedures Performed Operation Date: 11/26/18 07:30 Actual Procedures p Cardioversion - Kimberly Eller DO Hospital Course (1) Sinus bradycardia: Total Time Total Time Spent Total Time Spent (In Minutes): 30 Discharge Plan Discharge Items Patient Disposition: Home - Self-Care Reason For Visit: A-FIB Discharge Diagnosis: pAF s/p dccv and increase sotalol dosing Condition: Good Discharge Goals: Improve function Activity: Resume your previous activity Lifting: None Bathing: No limitations Non-emergency contact: [employer]utter Call non-emergency contact if: you have any medication questions Follow-up/Referrals: Angelito Sales MD [Primary Care Provider] - Diet: Heart Healthy Addtl Provider Instructions: f/u with me in 1 month as scheduled Prescriptions: New sotalol 80 mg Tablet 160 mg PO BID Qty: 60 RF: 0 Continued lisinopril 10 mg Tablet 10 mg PO QPM RF: 0 gabapentin 100 mg Capsule 100 mg PO BID RF: 0 Eliquis 5 mg Tablet 5 mg PO BID RF: 0 sumatriptan succinate 100 mg Tablet 100 mg PO PRN (Reason: Migraine Headache) RF: 0 amitriptyline 10 mg Tablet 10 mg PO DAILY RF: 0 triamcinolone acetonide [Nasacort] 55 mcg Aerosol,[place] 2 spray intranasal PRN (Reason: Allergy Symptoms) RF: 0 aspirin 81 mg Tablet,Chewable 81 mg PO DAILY RF: 0 Discontinued sotalol 80 mg Tablet 80 mg PO BID RF: 0 Stand-Alone Forms: [facility] Discharge Orders: Discharge Order (Routine); Ordered 11/27/18 Ordered By: Kimberly Eller Admission Data Admit Date/Time: 11/25/18 08:53 Attending Provider: Kimberly Eller Admit Provider: Kimberly Eller Primary Care Provider: Angelito Sales Service: Telemetry Other Interventions: Discharge Summary Assessment (RN) Last Done: 11/27/18 09:25 DC Date/Time DO NOT enter until pt leaves facility: 11/27/18 10:00
--- NOTE | 2018-12-16 23:50 | Operative Report ---
DATE OF OPERATION: 11/25/2018 DATE OF PROCEDURE: 11/25/2018 PREOPERATIVE DIAGNOSIS: Paroxysmal atrial fibrillation. POSTOPERATIVE DIAGNOSIS: Paroxysmal atrial fibrillation. PROCEDURE: Direct synchronized cardioversion. SURGEON: Kimberly Eller DO. CO FOUNDER AND CHIEF STRATEGY OFFICER: None. ANESTHESIA: Monitored anesthetic care administered via anesthesiology. Please refer their notes for complete details. BLOOD LOSS: None. URINE OUTPUT: None. SPECIMENS: None. FINDINGS: See below. DRAINS: None. COMPLICATIONS: None. CONDITION: Stable. INDICATIONS: This is a 63-year-old gentleman with past medical history for paroxysmal atrial fibrillation about 10 years now. He has had a history of cardioversions x3. He has been on sotalol for 8 years. He had been doing well until September when he was back in atrial fibrillation, so we started on Eliquis. His CHADS2-VASc score of 3 for hypertension and TIA. However, after the cardioversion in September, he still continued to have paroxysmal atrial fibrillation requiring another cardioversion and since he was referred to EP. His other past medical history is hypertension, TIA years ago, tobacco use, Raynaud syndrome, trigeminal neuralgia and cluster headaches. Due to him having recurrent paroxysmal atrial fibrillation, I recommended that we increase his sotalol and cardiovert him, so he is not symptomatic anymore and then set up for PVI ablation in the near future. CONSENT: Consent was obtained prior the patient enters the procedure room. The patient, was informed of risks, benefits, and alternatives of the procedure. Risks include but not limited to sudden cardiac , cardiac arrhythmia, cerebrovascular accident, myocardial infarction, injury, bleeding and infection. The patient understood these risks and agreed to undergo the procedure as planned. Informed consent was obtained. DESCRIPTION OF THE PROCEDURE: The patient was brought into the procedure room in a fasting state. He was connected to continuous cardiac monitoring. A timeout was performed to ensure patient's identity and procedure correctly. The patient received monitored anesthetic care via anesthesiology for the procedure, please refer to their notes for complete details. Then, a synchronized cardioversion with 200 joules was performed and he converted back to sinus rhythm. He was monitored post-sedation and then discharged up stairs where he will be monitored for an increase in his sotalol dose to 160 twice a day and he will continue the Eliquis and follow up with me in 1 month's time. I attest to the content of the Intraoperative Record and any orders documented therein. Any exception s are noted below.
== END 2018-11-27 10:00 | disposition home or self-care (01) | DRG 310 ==
LOC: 2S 08:53